=== PATIENT | female | born 1985 | race Caucasian/White ===

== ENCOUNTER 2017-02-21 23:22 | Emergency (ER) | payer OTHER ==
[~2017-02-21] VITALS: Ht 157.5 cm; Wt 81.6 kg
[~2017-02-21 23:22] MED LIST: ALPRAZOLAM0.5 MG PO; ARIPIPRAZOLE15 MG PO; BENADRYL25 MG PO; CELEXA40 MG PO; CITALOPRAM HBR 40 MG; FLEXERIL10 MG PO; IMITREX25 MG PO; NEURONTIN600 MG PO; NOHOMEMEDS; PROVENTIL17 GM IH; REGLAN10 MG PO; TRAMADOL HCL50 MG PO; TRAZODONE HCL100 MG PO; ULTRAM50 MG PO; VENTOLIN17 GM IH; VYVANSE30 MG PO; ZANTAC150 MG PO
[2017-02-22] MEDS ORDERED: NORCO 5/3251 TABLET PO (00:48)
[2017-02-22] MEDS ORDERED: LIDODERM 5% P1 PATCH TD (00:48)
[2017-02-22] MEDS ORDERED: VALIUM2 MG PO (00:48)
[2017-02-22 00:53] VITALS: BP 117/57
[2017-02-23] MEDS ORDERED: VALIUM5 MG PO (20:38)
[2017-02-23] MEDS ORDERED: PREDNISONE10 MG PO (20:38)
== END 2017-02-22 00:58 | disposition home or self-care (01) ==
LOC: EME 23:22
DX: S76.011A Strain of muscle, fascia and tendon of right hip, initial encounter (principal); G57.01 Lesion of sciatic nerve, right lower limb; X50.9XXA Other and unspecified overexertion or strenuous movements or postures, initial encounter; F17.200 Nicotine dependence, unspecified, uncomplicated
CPT/HCPCS: 99281; 99283

== ENCOUNTER 2017-02-23 16:17 | Emergency (ER) | payer OTHER ==
[~2017-02-23] VITALS: Ht 160 cm; Wt 81.6 kg
[~2017-02-23 16:17] MED LIST changes: +LIDODERM 5% P1 PATCH TD; +NORCO 5/3251 TABLET PO; +VALIUM2 MG PO
[2017-02-23 18:56] LABS: ADD MIUA? NO; BILIRUBIN NEGATIVE; BLOOD NEGATIVE; COLOR YELLOW ((YELLOW)); GLUCOSE (STRIP) NEGATIVE; KETONES NEGATIVE; LEUKOCYTES NEGATIVE; NITRITE NEGATIVE; PROTEIN (STRIP) NEGATIVE; SPECIFIC GRAVITY 1.014 (1.000-1.030); UROBILINOGEN 0.2 MG/DL (0.2-1.0)
[2017-02-23] MEDS ORDERED: VALIUM5 MG PO (20:38)
[2017-02-23] MEDS ORDERED: PREDNISONE10 MG PO (20:38)
[2017-02-23 20:46] LABS: INTERNAL CONTROL VALID? YES
[2017-02-23 21:23] VITALS: BP 95/66
== END 2017-02-23 21:23 | disposition home or self-care (01) ==
LOC: EME 16:17
PROVIDERS: Physician Assistant
DX: S76.011A Strain of muscle, fascia and tendon of right hip, initial encounter (principal); X50.9XXA Other and unspecified overexertion or strenuous movements or postures, initial encounter; Y93.02 Activity, running; Y92.89 Other specified places as the place of occurrence of the external cause; Z88.8 Allergy status to other drugs, medicaments and biological substances
CPT/HCPCS: 73502; 81003; 84703; 99281; 99285; J3010; J7512

== ENCOUNTER 2017-02-25 23:08 | Emergency (ER) | payer OTHER ==
[~2017-02-25] VITALS: Ht 160 cm; Wt 83.2 kg
[~2017-02-25 23:08] MED LIST changes: +PREDNISONE10 MG PO; +VALIUM5 MG PO
[2017-02-25 23:14] VITALS: BP 112/67
[2017-02-26] MEDS ORDERED: ROBAXIN750 MG PO (01:12)
[2017-02-26] MEDS ORDERED: PERCOCET 5/31 TABLET PO (01:12)
== END 2017-02-26 01:39 | disposition home or self-care (01) ==
LOC: EME 23:08
DX: M54.5 Low back pain (principal); M25.551 Pain in right hip; G89.29 Other chronic pain; Z88.8 Allergy status to other drugs, medicaments and biological substances
CPT/HCPCS: 99281; 99284; J2270

== ENCOUNTER 2018-01-08 01:38 | Emergency (ER) | payer OTHER ==
[~2018-01-08] VITALS: Ht 160 cm; Wt 79.1 kg
[~2018-01-08 01:38] MED LIST changes: +PERCOCET 5/31 TABLET PO; +ROBAXIN750 MG PO
[2018-01-08] MEDS ORDERED: SUDAFED PE PRE1 EAC1 PO (03:35)
[2018-01-08] MEDS ORDERED: ALBUTEROL2.5 MG/3 M IH (03:35)
[2018-01-08] MEDS ORDERED: PREDNISONE50 MG PO (04:06)
[2018-01-08 04:16] VITALS: BP 133/80
== END 2018-01-08 04:16 | disposition home or self-care (01) ==
LOC: EME 01:38
DX: J45.901 Unspecified asthma with (acute) exacerbation (principal); J20.9 Acute bronchitis, unspecified; Z88.1 Allergy status to other antibiotic agents; Z87.891 Personal history of nicotine dependence
CPT/HCPCS: 94640; 99281; 99284; J7512